=== PATIENT | male | born 1955 | race Caucasian/White ===

== ENCOUNTER → 2016-12-28 | Outpatient (CLI) | payer BC ==
[2016-12-28 17:43] LABS: HEMATOCRIT 43.5 % (42-52)
[2016-12-28 18:13] LABS: ALB/GLOB RATIO 1.2 (0.9-2); ALKALINE PHOSPHATASE 66 U/L (45-117); ALT/SGPT 36 U/L (12-78); AST/SGOT 22 U/L (15-37); BLOOD UREA NITROGEN 9 mg/dl (7-18); BUN/CREATININE RATIO 11.4 (10-20); CARBON DIOXIDE 31 mmol/L (21-32); CHLORIDE 105 mmol/L (98-107); CREATININE 0.81 mg/dl (0.60-1.40); GLUCOSE 91 mg/dl (70-99); HDL CHOLESTEROL 49 mg/dl; SODIUM 140 mmol/L (136-145)
[2016-12-28 18:14] LABS: CHOLESTEROL 99 mg/dl (0-200); LDL CHOLESTEROL CALCULATED 40 mg/dl; TRIGLYCERIDES 50 mg/dl (0-150); VERY LOW DENSITY LIPOPROT CALC 10 mg/dl
== END ==
LOC: C.LABMFLN 12:56
PROVIDERS: ATTEND Family Medicine
DX: I25.10 Atherosclerotic heart disease of native coronary artery without angina pectoris (principal); E78.00 Pure hypercholesterolemia, unspecified; E53.8 Deficiency of other specified B group vitamins

== ENCOUNTER → 2017-07-18 | Outpatient (CLI) | payer BC ==
[2017-07-18 18:29] LABS: BASO % 0.3 %; BASO ABS # 0.02 K/uL (0-0.2); COMPLETE YES; EOS % 2.5 %; HEMATOCRIT 45.1 % (42-52); IG% 0.3 %; LYMPH % 20.6 %; LYMPH ABS # 1.59 K/uL (1.2-3.4); MEAN CELL VOLUME 94.9 fL (80-100); MEAN CORPUSCULAR HEMOGLOBIN 31.8 pg (25-34); MEAN CORPUSCULAR HGB CONC 33.5 g/dl (32-36); MEAN PLATELET VOLUME 10.6 fL (7.4-10.4); MONO % 8.2 %; NEUT % 68.1 %; PLATELET COUNT 264 K/uL (130-400); RED BLOOD COUNT 4.75 M/uL (4.7-6.1)
[2017-07-18 18:40] LABS: ALT/SGPT 32 U/L (12-78); AST/SGOT 15 U/L (15-37); BLOOD UREA NITROGEN 9 mg/dl (7-18); BUN/CREATININE RATIO 12.1 (10-20); CALCIUM 8.6 mg/dl (8.5-10.1); CARBON DIOXIDE 30 mmol/L (21-32); CHLORIDE 102 mmol/L (98-107); CREATININE 0.75 mg/dl (0.60-1.40); GLUCOSE 106 mg/dl (70-99); POTASSIUM 4.1 mmol/L (3.5-5.1); SODIUM 137 mmol/L (136-145)
[2017-07-18 18:43] LABS: ALB/GLOB RATIO 1.1 (0.9-2); ALKALINE PHOSPHATASE 62 U/L (45-117); CHOLESTEROL 111 mg/dl (0-200); CHOLESTEROL/HDL RATIO 1.9; HDL CHOLESTEROL 59 mg/dl; LDL CHOLESTEROL CALCULATED 39 mg/dl; TRIGLYCERIDES 63 mg/dl (0-150); VERY LOW DENSITY LIPOPROT CALC 13 mg/dl
== END | disposition home or self-care (01) ==
LOC: C.LABMFLN 12:15
PROVIDERS: ATTEND Family Medicine
DX: E78.00 Pure hypercholesterolemia, unspecified (principal); D51.9 Vitamin B12 deficiency anemia, unspecified; E78.5 Hyperlipidemia, unspecified; I25.10 Atherosclerotic heart disease of native coronary artery without angina pectoris

== ENCOUNTER → 2018-01-02 | Outpatient (CLI) | payer BC ==
[2018-01-02 18:21] LABS: ALBUMIN 3.7 gm/dl (3.4-5.0); ALKALINE PHOSPHATASE 61 U/L (45-117); ALT/SGPT 42 U/L (12-78); AST/SGOT 16 U/L (15-37); BLOOD UREA NITROGEN 17 mg/dl (7-18); CALCIUM 9.3 mg/dl (8.5-10.1); CARBON DIOXIDE 29 mmol/L (21-32); CHOLESTEROL 102 mg/dl (0-200); CREATININE 0.98 mg/dl (0.60-1.40); GLUCOSE 90 mg/dl (70-99); LDL CHOLESTEROL CALCULATED 40 mg/dl; POTASSIUM 3.8 mmol/L (3.5-5.1); SODIUM 140 mmol/L (136-145); TOTAL PROTEIN 7.6 gm/dl (6.4-8.2)
== END | disposition home or self-care (01) ==
LOC: C.LABMFLN 11:01
PROVIDERS: ATTEND Family Medicine
DX: I25.10 Atherosclerotic heart disease of native coronary artery without angina pectoris (principal); D51.9 Vitamin B12 deficiency anemia, unspecified; I10 Essential (primary) hypertension; E78.00 Pure hypercholesterolemia, unspecified; M17.10 Unilateral primary osteoarthritis, unspecified knee; Z12.5 Encounter for screening for malignant neoplasm of prostate

== ENCOUNTER 2021-10-21 06:20 | Observation (INO) ==
--- NOTE | 2021-10-12 10:26 | Anesthesiology Consultation ---
Date of Service October 12, 2021 Assessment & Plan (1) Encounter for pre-operative examination: - check BSG am DOS. - Pre-op EKG 10/09/2021-anterior infarct now present. Case reviewed with Dr. Guardado who also personally reviewed EKGs and advised case will need cardiology clearance statement on most recent EKG. Workload note sent to patient's ghost writer. Awaiting cardiology clearance statement. - Case discussed with Dr. Guardado who advised nothing further needed regarding new diabetic diagnosis given A1c at 6.8% or thrush as patient was initiated on treatment by PCP. - PCP office visit 09/29/2021 [place]: "...patient's history of coronary artery disease he denies having any chest pain, chest pressure, or shortness of breath...patient has a rash in his mouth. He has been using Kenalog and Orabase without any relief. It has been present for several months...rash in the mouth I do not think it is lichen planus...looks more like thrush which is a fungal infection. Also, it looks like you have a fungal infection in the penis area...tried nystatin swishes and swallows in June without relief...will give fluconazole 200 mg, 2 pills today and 1 pill daily for 13 more days. Do not take the atorvastatin while on the fluconazole..." - Cardio office visit 06/09/2021: "...Recommendations: 1. The patient isan acceptable cardiac riskto undergo left total knee arthroplasty as scheduled. Based on his high activity level at this time and lack of any cardiac symptoms he does not require a stress test preoperatively. 2. Would continue his usual cardiac medications throughout the perioperative course..." - COVID screening: Per patient assessment coordinator on 10/07/2021: Travel screen negative, no known COVID-19 positive contacts or current COVID-19 related symptoms in past 2 weeks. Patient vaccinated. Surgeon arranging preop COVID testing, scheduled 10/19/2021. Awaiting results. Chart Review Chart Review: Pending: Refer to Additional Notes / Consult section and Patient NOT seen in Pre Admission Testing History Surgery Operation Date: 10/21/21 09:15 Proposed Procedures p Left Total Knee Arthroplasty - Luis Hernandez MD Surgery re-scheduled to 10/21/2021. PAT clinic evaluation 05/18/2021. Height/Weight Height: 6 ft Weight: 140.614 kg Allergies Allergy/AdvReac Type Severity Reaction Status Date / Time No Known Allergies Allergy Verified 10/07/21 13:51 Medications Home Medications Medication Instructions Recorded Confirmed Last Taken aspirin 81 mg tablet 81 mg PO HS tab 01/25/19 10/07/21 Unknown [id number] 1 tab PO BID tab 01/25/19 10/07/21 Unknown 750 mg-100 mg-125 mg-1.65 mg tablet (Glucosamine Chondroit Complx Advan) ascorbic acid (vitamin C) 500 mg 500 mg PO QAM tab 03/23/19 10/07/21 Unknown tablet meloxicam 15 mg tablet 15 mg PO DAILY #30 tab 06/19/20 10/07/21 Unknown syringe with needle 3 mL 25 x 5/8" #1 ea 06/19/20 09/29/21 Unknown (BD SafetyGlide Syringe) lisinopril 20 mg tablet 20 mg PO DAILY #90 tab 11/10/20 10/07/21 Unknown pantoprazole 40 mg tablet,delayed 40 mg PO DAILY #90 tab 01/13/21 10/07/21 Unknown release trazodone 100 mg tablet 100 mg PO HS #90 tab 03/24/21 10/07/21 Unknown metoprolol succinate 50 mg 50 mg PO DAILY #90 tab 05/04/21 10/07/21 Unknown tablet,extended release 24 hr calcium 600 mg capsule 600 mg PO HS 05/13/21 10/07/21 Unknown atorvastatin 80 mg tablet 80 mg PO HS #90 tab 06/25/21 10/07/21 Unknown nystatin 100,000 unit/gram topical 1 applic TOPICAL BID #30 g 06/29/21 10/07/21 Unknown cream nystatin 100,000 unit/mL oral 5 ml PO QID #473 ml 06/29/21 10/07/21 Unknown suspension zolpidem 10 mg tablet 10 mg PO HS PRN #90 tab 07/22/21 10/07/21 Unknown escitalopram oxalate 20 mg tablet 20 mg PO DAILY #90 tab 09/02/21 10/07/21 Unknown ferrous gluconate 324 mg (38 mg 324 mg PO DAILY #30 tab 09/29/21 10/07/21 Unknown iron) tablet fluconazole 200 mg tablet See Rx Instructions PO DAILY #15 09/29/21 10/07/21 Unknown tab cyanocobalamin (vitamin B-12) 1,000 mcg IM MONTHLY #3 ea 10/05/21 10/07/21 Unknown 1,000 mcg/mL injection kit hydrocodone 5 mg-acetaminophen 325 See Rx Instructions PO QID PRN 10/05/21 10/07/21 Unknown mg tablet #180 tab MDD 6 nitroglycerin 0.4 mg sublingual 0.4 mg SL Q5M PRN #25 tab 10/05/21 10/07/21 Unknown tablet Past Medical History Medical History (Updated 10/12/21 @ 10:23 by Liliana Walden PA-C) Arteriosclerosis of coronary artery CABG X 1( GÓMEZ-LAD ) 06/08/2007 at [place] Depression "Weather related/rainy days" he reports if extended i.e consecutive days Diabetes mellitus A1c 6.8% 09/2021 GERD without esophagitis well controlled, stable Hyperlipidemia Hypertension Well controlled, stable Insomnia Obesity Patient denied h/o stroke, seizures, heart failure, DM, blood clots or blood transfusions. Exercise / Class Metabolic Activity II 4-5 Yardwork/Stairs/Walk up hill (no CP or SOB) Past Family History Family History Father Rheumatoid arthritis Diabetes Psoriasis Mother Fibromyalgia Other No family history of adverse response to anesthesia Past Surgical History Surgical History H/O arthroscopic knee surgery ? 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 History of tooth extraction Hx of CABG X 1 VESSEL (10 YEARS AGO>[facility]) History of PONV History of PONV Social History Smoking Status: Former smoker tobacco type: cigarettes and smokeless tobacco Do You Dip or Chew Tobacco: No (12 years ago) Smoking End Date: in his 30s Hx Alcohol Use: Yes alcohol intake frequency: holidays/special occasions only Hx Substance Use: No substance use type: does not use Review of Systems Patient denied chest pain, shortness of breath, dyspnea on exertion, snoring, witnessed apneas, dizziness, lightheadedness, fever, chills, cough, wheezing, palpitations. Physical Exam Vital Signs Vitals (05/2021) BP 124/71 P 74 TEMP 98.6 SP02 97% RESP 16 Physical (05/2021) Mild limited cervical extension range of motion without pain Full TMJ range of motion TMD 3 finger breaths Mallampati Score 1 Dentition: intact, full upper dentures, missing back mandibular teeth. No crowns, implants, loose or chipped teeth Lungs: normal respiratory effort. Clear throughout to auscultation, no adventitious breath sounds Cardiac: regular rate and rhythm, no murmurs noted Carotid arteries: negative bruit bilat Extremities: no distal extremity edema Lab Results Anesthesia Preop Results Results Anesthesia Widget: WBC 8.00 K/uL (4.8-10.8) 10/09/21 Hgb 14.7 g/dL (14.0-18.0) 10/09/21 Hct 43.8 % (42-52) 10/09/21 Plt 272 K/uL (130-400) 10/09/21 Na 140 mmol/L (136-145) 10/09/21 K 4.5 mmol/L (3.5-5.1) 10/09/21 Cl 103 mmol/L (98-107) 10/09/21 CO2 28 mmol/L (21-32) 10/09/21 BUN 15 mg/dl (6-23) 10/09/21 Creat 0.77 mg/dl (0.6-1.4) 10/09/21 Glucose Level 105 mg/dl (70-99(Fasting)) H 10/09/21 Fasting Glucose 127 mg/dl (70-99) H 09/29/21 PT 9.8 Seconds (9.0-12.0) 10/09/21 PTT 25.1 Seconds (21.0-31.0) 10/09/21 INR 1.0 (0.9-1.1) 10/09/21 HA1c 6.8 % (4.5-5.6) H 10/09/21 Urine Color Yellow 10/09/21 Urine Appearance Clear (Clear) 10/09/21 Urine pH 5.0 (4.5-7.5) 10/09/21 Urine Specific [place] 1.020 (1.000-1.030) 10/09/21 Urine Protein Negative (Negative) 10/09/21 Urine Glucose (UA) Negative (Negative) 10/09/21 Urine Ketones Negative (Negative) 10/09/21 Urine Blood Negative (Negative) 10/09/21 Urine Nitrite Negative (Negative) 10/09/21 Urine Bilirubin Negative (Negative) 10/09/21 Urine Urobilinogen Negative (Negative) 10/09/21 Urine Leukocyte Esterase Negative (Negative) 10/09/21 Testing Electrocardiogram Date: 10/09/21 NSR, rate 68 bpm Left axis deviation Anterior infarct Chest X-Ray Date: 05/18/21 IMPRESSION: 1. No acute process. 2. Linear left midlung and left lung base opacities suggest atelectasis/scarring.
--- NOTE | 2021-10-20 19:14 | History & Physical Report ---
Date of Service October 20, 2021 Assessment & Plan (1) Primary osteoarthritis of left knee: Plan: Treatment options discussed with the patient. He has failed conservative measures. He would like to proceed with surgical intervention. Risks, benefits and alternatives to surgery including but not limited to infection, DVT, pain, stiffness, need for revision surgery, damage to blood vessels, damage to nerves, PE, , were discussed with the patient and they wish to proceed. Plan on left total knee arthroplasty scheduled for with Dr. Hernandez at [facility]. Will plan on ASA 81mg BID for 1 mo post op for DVT prophylaxis. All questions answered. f/u post op. History of Present Illness Chief Complaint: Left knee pain Primary Care Provider: Ron Hamilton MD 66 year old male with PMHx significant for HTN, CAD, high cholesterol, DM2 who presents with ongoing left knee pain. He has pain interfering with his daily ac tivities. He has failed conservative measures including anti-inflammatories and injections. He would like to proceed with knee replacement. Patient denies headaches, sweats, fevers, chills, double vision, blurred vision, cough, sore throat, dysphagia, chest pain, sob, wheezing, n/v/d/c, numbness, tingling, fatigue, urinary symptoms, mood disorders. ROS positive for left knee pain and stiffness. Allergies Allergy/AdvReac Type Severity Reaction Status Date / Time No Known Drug Allergies Allergy Verified 10/14/21 10:41 Home Medications Medication Instructions Recorded Confirmed Type aspirin 81 mg tablet 81 mg PO HS tab 01/25/19 10/14/21 History [id number] 1 tab PO BID tab 01/25/19 10/14/21 History 750 mg-100 mg-125 mg-1.65 mg tablet (Glucosamine Chondroit Complx Advan) ascorbic acid (vitamin C) 500 mg 500 mg PO QAM tab 03/23/19 10/14/21 History tablet meloxicam 15 mg tablet 15 mg PO DAILY #30 tab 06/19/20 10/14/21 Rx syringe with needle 3 mL 25 x 5/8" #1 ea 06/19/20 10/14/21 Rx (BD SafetyGlide Syringe) lisinopril 20 mg tablet 20 mg PO DAILY #90 tab 11/10/20 10/14/21 Rx pantoprazole 40 mg tablet,delayed 40 mg PO DAILY #90 tab 01/13/21 10/14/21 Rx release trazodone 100 mg tablet 100 mg PO HS #90 tab 03/24/21 10/14/21 Rx metoprolol succinate 50 mg 50 mg PO DAILY #90 tab 05/04/21 10/14/21 Rx tablet,extended release 24 hr calcium 600 mg capsule 600 mg PO HS 05/13/21 10/14/21 History atorvastatin 80 mg tablet 80 mg PO HS #90 tab 06/25/21 10/14/21 Rx nystatin 100,000 unit/gram topical 1 applic TOPICAL BID #30 g 06/29/21 10/14/21 Rx cream nystatin 100,000 unit/mL oral 5 ml PO QID #473 ml 06/29/21 10/14/21 Rx suspension zolpidem 10 mg tablet 10 mg PO HS PRN #90 tab 07/22/21 10/14/21 Rx escitalopram oxalate 20 mg tablet 20 mg PO DAILY #90 tab 09/02/21 10/14/21 Rx ferrous gluconate 324 mg (38 mg 324 mg PO DAILY #30 tab 09/29/21 10/14/21 Rx iron) tablet fluconazole 200 mg tablet See Rx Instructions PO DAILY #15 09/29/21 10/14/21 Rx tab cyanocobalamin (vitamin B-12) 1,000 mcg IM MONTHLY #3 ea 10/05/21 10/14/21 Rx 1,000 mcg/mL injection kit hydrocodone 5 mg-acetaminophen 325 See Rx Instructions PO QID PRN 10/05/21 10/14/21 Rx mg tablet #180 tab MDD 6 nitroglycerin 0.4 mg sublingual 0.4 mg SL Q5M PRN #25 tab 10/05/21 10/14/21 Rx tablet azithromycin 250 mg tablet 250 mg PO .COMPLEX 5 Days #6 tab 10/12/21 10/14/21 Rx MDD 2 chlorhexidine gluconate 0.12 % 15 ml BUCCAL BID #1500 ml 10/14/21 10/14/21 Rx mouthwash (Peridex) dexamethasone 0.5 mg/5 mL oral 5 ml PO BID #240 ml 10/14/21 10/14/21 Rx solution Past Med/Surg History Medical History Arteriosclerosis of coronary artery Depression Diabetes mellitus GERD without esophagitis Hyperlipidemia Hypertension Insomnia Mouth ulcers Obesity Surgical History H/O arthroscopic knee surgery H/O lymph node biopsy History of carpal tunnel release History of colonoscopy History of excision of pilonidal cyst History of surgery on arm History of tooth extraction Hx of CABG Family History Father Rheumatoid arthritis Diabetes Psoriasis Mother Fibromyalgia Family/Other Hypertension Other No family history of adverse response to anesthesia No family history of bleeding disorder Social History Smoking Status: Former smoker Age Started Using Tobacco: 21; Age Quit Using Tobacco: 32; packs per day: 1; Years Smoked: 25; Second Hand Exposure: No; Hx Alcohol Use: Yes Hx Substance Use: No Preferred Language: Yi Communication Ability: Effective Insect Control Inspector Required: No Beliefs That Will Affect Care: None marital status: Current Living Situation: Spouse current occupational status: employed 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 Feels Safe at Home: Yes Dental Care, Regularly: Yes Physical Activity Frequency: Other Seatbelt Use: always Sunscreen Use: Yes Assistive Devices: Denture - Upper and Glasses Review of Systems All systems reviewed & are unremarkable except as noted in HPI & below Physical Exam Constitutional: well developed and well nourished; no acute distress Eyes: PERRL, conjunctivae normal, anicteric sclerae ENMT: external ear and nose normal, oropharynx normal Neck: trachea midline, no thyromegaly Respiratory: normal respiratory effort, lungs clear to auscultation Cardiovascular: RRR, no murmur, no edema Musculoskeletal: Left knee: Tenderness medial joint line. Varus alignment, mild effusion. Stable to valgus and varus stress. Positive Darlene's. ROM 0-135 degrees . Skin: no rashes, warm and dry Neurologic: patellar DTR's 2+ bilat, sensation intact Psychiatric: A+Ox3, euthymic affect Results & Data ([place]) Diagnostic Findings Left knee radiographs demonstrate varus alignment. Bone on bone medial compartment with bone loss medial femoral condyle. He has subluxation. There is subchondral sclerosis and periarticular osteophyte formation. PF joint degenerative changes.
[~2021-10-21 06:20] MED LIST: ACETAMINOPHEN 500 MG TAB PO SCH; CeleBREX 200 MG CAP PO SCH; FAMOTIDINE 20 MG TAB PO SCH; GABAPENTIN 600 MG DOSE PO SCH; LR 500ML BOLUS, THEN 15ML/HR IV SCH; METOCLOPRAMIDE HCL 10 MG TABLET PO SCH; ROPIVACAINE 0.5% HCL/PF 150 MG, BUPIVACAINE 0.75% MPF 20 ML, EPINEPHrine 30MG/30ML (OR ... INFIL SCH; TRANEXAMIC ACID 1,000 MG **IV Intra-op IV SCH; TRANEXAMIC ACID 1,000 MG **IV Pre-op IV SCH; ceFAZolin 2000MG 2,000 MG/15 ML SYR IV SCH; dexAMETHasone 4 MG TAB PO SCH
[2021-10-21] MEDS ORDERED: BUPIVACAINE 0.5 % 5 MG/1 ML PF 10ML VIAL ONE (06:38)
[2021-10-21] MEDS ORDERED: ROPIVACAINE 0.5% 5 MG/ML 30 ML VIAL ONE (06:38)
[2021-10-21] MEDS ORDERED: MIDAZOLAM HCL 1 MG/ML 2ML VIAL ONE (08:48)
[2021-10-21] MEDS ORDERED: ATROPINE SULFATE 0.1 MG/ML 10ML SYR IV PRN (09:12)
[2021-10-21] MEDS ORDERED: ONDANSETRON INJ 2 MG/ML 2 ML VIAL IV PRN ×2 (09:12→14:01)
[2021-10-21] MEDS ORDERED: KETOROLAC 30 MG/ML VIAL IV PRN (09:12)
[2021-10-21] MEDS ORDERED: ePHEDrine sulfate 50 MG/ML AMP IV PRN (09:12)
[2021-10-21] MEDS ORDERED: HYDROmorphone INJ 1 MG/ML SYRINGE IV PRN (09:12)
--- NOTE | 2021-10-21 09:45 | History & Physical Bridge Note ---
Date of Service October 21, 2021 History & Physical Bridge Note I have examined the patient, reviewed the History & Physical and in the interval since the performance of the History & Physical I have noted the following changes of clinical significance: no changes noted
[2021-10-21] MEDS ORDERED: ORTHO JOINT ANESTHETIC ONE (09:46)
[2021-10-21] MEDS ORDERED: LIDOCAINE 2% 2 ML VIAL/AMP(20MG/ML) INFIL ONE (09:49)
[2021-10-21] MEDS ORDERED: PROPOFOL IV EMULSION 10 MG/ML 20 ML VIAL IV ONE ×3 (09:49→11:53)
[2021-10-21] MEDS ORDERED: ONDANSETRON INJ 2 MG/ML 2 ML VIAL ONE (09:50)
[2021-10-21] MEDS ORDERED: ePHEDrine sulfate 50 MG/ML SYR ONE (10:09)
[2021-10-21] MEDS ORDERED: KETAMINE 50 MG/5 ML SYRINGE ONE (10:12)
--- NOTE | 2021-10-21 11:48 | Operative Report ---
Post Operative Report Pre & Post Diagnosis Operation Date: 10/21/21 09:20 Pre-Op Diagnosis: Left Knee Osteoarthritis, obesity BMI 42.5 Post-Op Diagnosis: Left Knee Osteoarthritis, obesity BMI 42.5 I identified the patient and participated in the time-out.: Yes Procedure Operation Date: 10/21/21 09:20 Actual Procedures p Left Total Knee Arthroplasty(Left), lateral release, application superficial wound VAC Luis Hernandez MD Surgeon Luis Hernandez MD Drilling Field Professional Rajesh ROSE Estimated Blood Loss 5 Findings Consistent with Post-Op Diagnosis Specimens Bone cuts Drains 2 Hemovac Anesthesia Type MAC Spinal Regional Complications none Disposition Disposition: Recovery Room Indications 66-year-old male with progressive osteoarthritis of his left knee. Radiographs demonstrate a varus knee has [id number] medial compartment moderate patellofemoral osteoarthritis. Description of Procedure Patient was taken to the operating room placed supine on the operating table and anesthetized under spinal MAC regional block anesthesia. Exam under anesthesia demonstrated he had an obese upper thigh but his knee had normal size for a large man. The knee was varus and there was no instability there was a moderately large effusion. A pneumatic tourniquet was placed about the thigh of the left lower extremity. The left lower extremity was prepped and draped in usual sterile fashion. The leg was elevated exsanguinated with an Esmarch bandage and the pneumatic tourniquet was raised to 350 mm mercury. An anterior incision was made across the left knee. The skin was incised longitudinally subcutaneous flaps were elevated and an incision was made through the medial retinaculum extending up into the mid third of the quadriceps tendon and extended down to the medial tibial tubercle. Intra-articular findings demonstrated medial compartment and patellofemoral OA [id number] medial compartment grade 4 osteoarthritis of the patella. There was degeneration of the ACL with partial tearing. The knee was exposed by excising the infrapatellar fat pad, excising the meniscal remnants and anterior cruciate ligament. Any inflamed synovial tissue was resected. The fat pad over the anterior femur was resected for placement of the component in that area. The lateral synovial bands were release. The femur was exposed. The custom femoral cutting block was pinned in position. The distal femoral cutting block was applied. The distal femoral cut was made with the oscillating saw. The size 10, 4-in-1 cutting block was placed. The anterior and posterior chamfer cuts were made. The knee was extended and a subperiosteal peel lateral release was performed around the patella. The patella width was measured and width was reproduced using freehand cut technique. The 38 millimeter symmetrical patella was used. 3 drill holes are made for the pegs. The tibia was exposed. A custom tibial cutting block was positioned and drill holes were made for the cutting guide. Cutting guide was placed and the proximal cut was made with the oscillating saw. All osteophytes were resected. The lamina senior client advisor was used to assess ligamentous balance and the ligaments were balanced in extension and flexion. The tibia was reexposed and measured for a size F tibial component. This was externally rotated in line with the tibial tubercle and the fixation pins were drilled. The proximal tibia was fashioned with the drill and punch. The size 10 CR femoral trial was inserted. The trial MC inserts were used. The 11 mm insert gave balanced ligaments through full range of motion. The patella tracked with some slight lateral liftoff and lateral tilt so I did a lateral release leaving the synovium intact and this corrected the patella tracking to central. The trials were removed. The orthomix anesthetic cocktail was injected per protocol. The knee was then copiously irrigated with pulsatile lavage saline solution. The final components were cemented with Refobacin bone cement. The final components were [employer] persona left standard CR femoral component, left F tibial component and 11 MC polyethylene insert and a 38 symmetrical patella after the cement cured with the knee in full extension the Betadine soak was used per protocol. The knee joint was copiously irrigated with pulsatile lavage saline solution . 2 drains were brought out laterally and connected to a Hemovac. The quadriceps tendon and medial retinaculum were closed with interrupted [id number] #1 Vicryl sutures. The knee was taken through a full range of motion and repair was secure. The subcutaneous tissues were closed with 2-0 Vicryl sutures and skin was closed with mary beth. A ana and Acticoat superficial wound VAC was applied and the patient tolerated the procedure well. Rajesh ROSE my physician distribution center assistant, acted as first aid officer through the entire procedure assisting all aspects of the procedure including assisted in soft tissue retraction, instrument management ,leg positioning, the closure application of superficial wound VAC and will participate in the postoperative care of the patient. I attest to the content of the Intraoperative Record and any orders documented therein. Any exceptions are noted below.
--- NOTE | 2021-10-21 12:52 | XRay Report ---
XR knee LT 1 or 2V routine CLINICAL HISTORY: Surgical Post Op TECHNIQUE: 2 views of the right knee were obtained. Comparison: Comparison is made to MRI left knee 05/18/2021 FINDINGS: Patient is status post total knee arthroplasty with expected postsurgical changes including soft tiss ue swelling, subcutaneous emphysema, and surgical staple placement. No periarticular lucency or hardw are fracture is seen. The alignment is anatomic. No joint effusion is seen. No soft tissue abnormalit y is seen. IMPRESSION: Expected postoperative appearance status post placement of total knee arthroplasty. ACT 112: Negative or not required by law. Electronically signed by: Aquilino Manzanares M.D. 10/21/2021 12:50 PM
--- NOTE | 2021-10-21 13:13 | Anesthesiology Progress Note ---
Date of Service October 21, 2021 Anesthesia Post Procedure Vital Signs Vital Signs: Temp Pulse Pulse Resp BP Pulse Ox 10/21/21 13:10 89 18 138/74 96 10/21/21 13:00 36.7 C 90 19 122/68 98 10/21/21 12:50 91 H 18 117/77 98 10/21/21 12:40 94 H 17 116/74 94 10/21/21 12:30 87 15 136/82 97 10/21/21 12:23 36.0 C L 97 H 15 118/70 99 10/21/21 06:58 37 C 80 20 167/92 H 95 Transfer of Care Handoff Completed per policy Notes Mental Status: alert / awake / arousable and participated in evaluation Nausea / Vomiting: adequately controlled Pain: adequately controlled Airway Patency, RR, SpO2: stable & adequate BP & HR: stable & adequate Hydration State: stable & adequate Neuraxial Anesthesia: was administered and sensory block is resolving Anesthetic Complications: no major complications apparent and Pt Satisfied with anesthetic care
[2021-10-21] MEDS ORDERED: SODIUM CHLORIDE 0.9% 1000ML 1,000 ML IV SCH (14:01)
[2021-10-21] MEDS ORDERED: HYDROmorphone INJ 0.5 MG/0.5 ML SYR IV PRN (14:01)
[2021-10-21] MEDS ORDERED: NON-FORMULARY MEDICATION (Cyanocobalamin (Vitamin B-12) 1,000 mcg/mL kit) IM SCH (14:01)
[2021-10-21] MEDS ORDERED: ZOLPIDEM TARTRATE 10 MG TAB PO PRN (14:01)
[2021-10-21] MEDS ORDERED: bisacodyL 10 MG SUPP PR PRN (14:01)
[2021-10-21] MEDS ORDERED: PHARMACY GLYCEMIC MGMT CONSULT PRN (14:01)
[2021-10-21] MEDS ORDERED: NITROGLYCERIN SL 0.4 MG/TAB TAB SL PRN (14:01)
[2021-10-21] MEDS ORDERED: MAGNESIUM HYDROXIDE SUSP 30 ML UDC PO PRN (14:01)
[2021-10-21] MEDS ORDERED: METOCLOPRAMIDE HCL INJ 5 MG/ML 2 ML VIAL IV PRN (14:01)
[2021-10-21] MEDS ORDERED: NALOXONE HCL 0.4 MG/1 ML VIAL/CARP IV PRN (14:01)
--- NOTE | 2021-10-21 14:44 | Pharmacy Report ---
Pharmacy Glycemic Short Note 2 - Date of Service October 21, 2021 - Glycemic Short BSG Results (Last 24 hours): 10/21/21 10/21/21 06:55 12:26 POC Glucose 130 H 132 H OUTPATIENT ANTIDIABETIC REGIMEN: * none * A1c = 6.8% (10/09/21) ASSESSMENT: * Rivera is a 66 yo s/p left TKA * He does not take any anti-diabetic agents as an outpatient. * Excellent BSG control thus far today. BSGs 130 and 132 mg/dL. * Patient did receive a dose of dexamethasone PO preop, therefore he could experience postprandial hyperglycemia throughout the day. Will order a one time prn dose of NPH to be given for BSG > 150 mg/dL at dinner. PLAN FOR INPATIENT GLYCEMIC CONTROL: * Hold outpatient oral diabetes medications * Basal insulin * NPH 0-20 units units SQ with dinner x 1 (only for BSG > 150) * Bolus insulin * NovoLog per scale ACHS or Q6hrs while NPO * Goal Range: Low 110 mg/dL - High 140 mg/dL * Correction Factor: 20 mg/dL/unit * Nutritional / Prandial insulin per carb ratio of 1 unit per 7 grams CHO consumed
[2021-10-21] MEDS ORDERED: CARBOHYDRATES FOR HYPOGLYCEMIA PO PRN (14:45)
[2021-10-21] MEDS ORDERED: GLUCOSE 10 TABS/TUBE PO PRN (14:45)
[2021-10-21] MEDS ORDERED: GLUCAGON FOR INJ 1 MG VIAL IM PRN (14:45)
[2021-10-21] MEDS ORDERED: DEXTROSE 50% 50 ML SYRINGE IV PRN (14:45)
[2021-10-21] MEDS ORDERED: GLUCOSE 40% GEL 15 GM TUBE PO PRN (14:45)
--- NOTE | 2021-10-21 16:08 | Hospitalist Consultation ---
Date of Consultation October 21, 2021 Assessment & Plan (1) Primary osteoarthritis of left knee: S/p left TKA with Dr. Hernandez on 10/21/2021. Reported BL was 5 mL. Presently without significant pain due to nerve block. - Post-operative care per surgery - DVT ppx: ASA 81 mg PO BID per primary team - At risk for acute blood loss anemia; monitor CBC, could consider IV iron prior to discharge. (2) Mouth ulcers: Lichen planus per pathology. - Continue home dexamethasone swish and spit (3) Diabetes mellitus: Recent A1c was 6.8%. - Sliding scale insulin & NPH insulin per glycemic consult (4) Coronary arteriosclerosis: Hx of CABG. - Continue ASA (higher dose for DVT ppx) - Continue home beta-simone, ACEi, and statin (5) Hypertension: BP presently 165/105. - Continue above meds (6) Depression: - Continue home SSRI - Continue home trazodone and zolpidem HS PRN for insomnia History of Present Illness Reason for Consultation: Left TKA, medical management Attending Physician: Luis Hernandez MD History of Present Illness 66yo M w/ hx of HTN, CAD, depression who presents after left TKA with Dr. Hernandez on 10/21/2021. The patient was having significant left knee pain that was recalitrant to conservative measures. The patient's knee block has not yet worn off. He can feel light touch, but denies any significant pain. Denies shortness of breath, chest pain, lightheadedness, urinary issues. Allergies Allergy/AdvReac Type Severity Reaction Status Date / Time No Known Drug Allergies Allergy Verified 10/21/21 06:48 Home Medications Medication Instructions Recorded Confirmed Type aspirin 81 mg tablet 81 mg PO HS tab 01/25/19 10/21/21 History [id number] 1 tab PO DAILY tab 01/25/19 10/21/21 History 750 mg-100 mg-125 mg-1.65 mg tablet (Glucosamine Chondroit Complx Advan) ascorbic acid (vitamin C) 500 mg 500 mg PO QAM tab 03/23/19 10/21/21 History tablet meloxicam 15 mg tablet 15 mg PO DAILY #30 tab 06/19/20 10/21/21 Rx syringe with needle 3 mL 25 x 5/8" #1 ea 06/19/20 10/14/21 Rx (BD SafetyGlide Syringe) lisinopril 20 mg tablet 20 mg PO DAILY #90 tab 11/10/20 10/21/21 Rx pantoprazole 40 mg tablet,delayed 40 mg PO DAILY #90 tab 01/13/21 10/21/21 Rx release trazodone 100 mg tablet 100 mg PO HS #90 tab 03/24/21 10/21/21 Rx metoprolol succinate 50 mg 50 mg PO DAILY #90 tab 05/04/21 10/21/21 Rx tablet,extended release 24 hr calcium 600 mg capsule 600 mg PO HS 05/13/21 10/21/21 History atorvastatin 80 mg tablet 80 mg PO HS #90 tab 06/25/21 10/21/21 Rx zolpidem 10 mg tablet 10 mg PO HS PRN #90 tab 07/22/21 10/21/21 Rx escitalopram oxalate 20 mg tablet 20 mg PO DAILY #90 tab 09/02/21 10/21/21 Rx ferrous gluconate 324 mg (38 mg 324 mg PO DAILY #30 tab 09/29/21 10/21/21 Rx iron) tablet cyanocobalamin (vitamin B-12) 1,000 mcg IM MONTHLY #3 ea 10/05/21 10/21/21 Rx 1,000 mcg/mL injection kit hydrocodone 5 mg-acetaminophen 325 See Rx Instructions PO QID PRN 10/05/21 10/21/21 Rx mg tablet #180 tab MDD 6 nitroglycerin 0.4 mg sublingual 0.4 mg SL Q5M PRN #25 tab 10/05/21 10/21/21 Rx tablet chlorhexidine gluconate 0.12 % 15 ml BUCCAL BID #1500 ml 10/14/21 10/21/21 Rx mouthwash (Peridex) dexamethasone 0.5 mg/5 mL oral 5 ml PO BID #240 ml 10/14/21 10/21/21 Rx solution acetaminophen 500 mg tablet 1,000 mg PO Q8H 14 Days #84 tab 10/21/21 Rx (Tylenol Extra Strength) aspirin 81 mg tablet,delayed 81 mg PO BID 30 Days #60 tab 10/21/21 Rx release Patient History Medical History (Updated 10/21/21 @ 16:07 by Ricky Huffman MD) Arteriosclerosis of coronary artery CABG X 1( [facility]MEZ-LAD ) 06/08/2007 at [place] Depression "Weather related/rainy days" he reports if extended i.e consecutive days Diabetes mellitus A1c 6.8% 09/2021 GERD without esophagitis well controlled, stable Hyperlipidemia Hypertension Well controlled, stable Insomnia Mouth ulcers Obesity Surgical History H/O arthroscopic knee surgery ? 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 History of tooth extraction Hx of CABG X 1 VESSEL (10 YEARS AGO>[facility]) Family History Father Rheumatoid arthritis Diabetes Psoriasis Mother Fibromyalgia Family/Other Hypertension pt unsure of who exactly but knows it ran in his family Other No family history of adverse response to anesthesia No family history of bleeding disorder Social History Smoking Status: Former smoker Age Started Using Tobacco: 21; Age Quit Using Tobacco: 32; packs per day: 1; Years Smoked: 25; Smoking End Date: in his 30s; Second Hand Exposure: No; Do You Dip or Chew Tobacco: No (12 years ago); Tobacco Cessation Education Requested by Patient: No Hx Alcohol Use: Yes Hx Substance Use: No Preferred Language: British Communication Ability: Effective Placement Specialist Required: No Beliefs That Will Affect Care: None marital status: Current Living Situation: Spouse current occupational status: employed 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 Feels Safe at Home: Yes Safety Concerns: Feels Safe At This Time Dental Care, Regularly: Yes Physical Activity Frequency: Other Seatbelt Use: always Sunscreen Use: Yes Assistive Devices: Walker Review of Systems Review of Systems: All systems reviewed & are unremarkable except as noted in HPI & below Physical Exam Constitutional: WD/WN, vitals as above Eyes: EOM intact bilaterally; no conjunctival abnormality ENMT: external ear and nose normal, oropharynx normal Neck: trachea midline, no thyromegaly normal visual inspection Respiratory: normal respiratory effort, lungs clear to auscultation no respiratory distress Cardiovascular: RRR, no murmur, no edema Gastrointestinal (Abdomen): Inspection/Auscultation: abdomen normal to inspection; abdomen not distended Musculoskeletal: Extremities: + limited ROM of lower extremity (Left leg in brace; toes warm and sensitive to light touch. Can wiggle sligh) Skin: no rashes, warm and dry Neurologic: moves all extremities and awake Psychiatric: Orientation: alert, oriented to person and cooperative Results & Data Results & Data ([facility]) Vital Signs (Past 12 Hours) Vital Signs Temp Pulse Pulse Resp BP Pulse Ox 10/21/21 15:45 36.6 C 90 18 167/105 H 96 10/21/21 14:32 84 16 173/81 H 96 10/21/21 14:02 36.5 C 74 16 162/95 H 93 10/21/21 14:01 36.5 C 74 16 162/95 H 93 10/21/21 13:20 86 18 131/76 96 10/21/21 13:10 89 18 138/74 96 10/21/21 13:00 36.7 C 90 19 122/68 98 10/21/21 12:50 91 H 18 117/77 98 10/21/21 12:40 94 H 17 116/74 94 10/21/21 12:30 87 15 136/82 97 10/21/21 12:23 36.0 C L 97 H 15 118/70 99 10/21/21 06:58 37 C 80 20 167/92 H 95 PG Care Time/CCT Total # of Minutes Spent Total Time Spent with Patient: Total time spent is greater than 50% in coordination of care (as documented) at patient's floor/unit and/or counseling patient: Coding Level of Care Code 19136 Office/OBS Consult Lvl 5 Diagnoses Primary osteoarthritis of left knee M17.12 Mouth ulcers K12.1 Coronary arteriosclerosis I25.10 Hypertension I10 Depression F32.9 Diabetes mellitus E11.9
[2021-10-21] MEDS ORDERED: NovoLIN-N (NPH) PER UNIT CHARGE SQ SCH (16:30)
[2021-10-21] MEDS: ACETAMINOPHEN 500 MG TAB PO SCH (17:13)
[2021-10-21] MEDS: INSULIN ASPART PER UNIT SC SCH ×2 (18:36→21:49)
[2021-10-21] MEDS: ceFAZolin 2000MG 2,000 MG/15 ML SYR IV SCH (18:52)
[2021-10-21] MEDS: oxyCODONE HCL IR 5 MG TAB (IMMEDIATE RELEASE) PO PRN (20:16)
[2021-10-21] MEDS ORDERED: CHLORHEXIDINE GLUCONATE 0.12% 480 ML MT SCH (21:00)
[2021-10-21] MEDS ORDERED: SENNA 8.6 MG TAB PO SCH (21:00)
[2021-10-21] MEDS ORDERED: DEXAMETHASONE 0.5 MG/5 ML PO SCH (21:00)
[2021-10-21] MEDS ORDERED: CALCIUM CARBONATE 1250MG TAB PO SCH (21:00)
[2021-10-21] MEDS ORDERED: ATORVASTATIN 40 MG TAB PO SCH (21:00)
[2021-10-21] MEDS ORDERED: traZODone HCL 100 MG TAB PO SCH (21:00)
[2021-10-21] MEDS: DOCUSATE SODIUM 100 MG CAP PO SCH (21:30)
[2021-10-21] MEDS: ASPIRIN 81 MG ECTAB PO SCH (21:31)
[2021-10-21] MEDS: CeleBREX 200 MG CAP PO SCH (21:31)
[2021-10-21] MEDS: DEXAMETHASONE CONC 1 MG/ML 30 ML PO SCH (22:27)
[2021-10-22] MEDS ORDERED: INSULIN ASPART PER UNIT SC SCH
[2021-10-22] MEDS: ACETAMINOPHEN 500 MG TAB PO SCH ×2 (00:03→08:41)
[2021-10-22] MEDS: ceFAZolin 2000MG 2,000 MG/15 ML SYR IV SCH (02:13)
[2021-10-22] MEDS: oxyCODONE HCL IR 5 MG TAB (IMMEDIATE RELEASE) PO PRN ×3 (02:13→11:35)
[2021-10-22 06:52] LABS: Hematocrit (blood only) 37.4 % (42-52); Hemoglobin 12.8 g/dL (14.0-18.0); Mean Corpuscular Hemoglobin 32.1 pg (25-34); Mean Corpuscular Hgb Conc 34.2 g/dL (32-36); Mean Corpuscular Volume 93.7 fL (80-100); Mean Platelet Volume 9.9 fL (7.4-10.4); Platelet Count 293 K/uL (130-400); RDW Coefficient of Variation 12.5 % (11.5-14.5); RDW Standard Deviation 42.9 fL (36.4-46.3); Red Blood Count 3.99 M/uL (4.7-6.1)
[2021-10-22 07:12] LABS: BUN Creatinine Ratio 23.1 (10-20); Calcium 8.8 mg/dl (8.5-10.1); Creatinine Clr Calc Pharmacy 139.9 ml/min; Est GFR (African American) 110.6 ml/min; Est GFR (Non-African American) 95.4 ml/min; Potassium 4.7 mmol/L (3.5-5.1)
[2021-10-22] MEDS: ASPIRIN 81 MG ECTAB PO SCH (08:41)
[2021-10-22] MEDS: CeleBREX 200 MG CAP PO SCH (08:42)
--- NOTE | 2021-10-22 08:42 | Orthopedic Progress Note ---
Date of Service October 22, 2021 Assessment & Plan (1) Primary osteoarthritis of left knee: Plan: POD 1 s/p Left TKA PT/OT protocols. WBAT. DVT prophylaxis - ASA bid, SCD's, SJ's Pain management as written Leukocytosis - pt asymptomatic currently; likely due to preop steroids and or surgical stress DC planning - Pt planning for services upon DC. Admission and Anticipated Discharge Date Admission Date: October 21, 2021 Subjective POD 1 Pt sitting up in bed awake, alert. Mild soreness in the operative knee this AM. No other complaints. Denies SOB,CP,LH Physical Exam Physical Exam: Dressings C/D/I. Calves soft, NT. NV intact. Toes mobile. Good DF/PF. HV drainage 150ml from previous shift. Results & Data ([facility]) Vital Signs (Past 12 Hours) Vital Signs Temp Pulse Resp BP Pulse Ox 10/22/21 07:24 36.5 C 74 18 158/90 H 93 10/22/21 04:58 36.7 C 86 17 148/81 H 98 10/21/21 23:54 36.8 C 85 17 152/80 H 93 Laboratory Results Laboratory Results WBC 16.00 K/uL (4.8-10.8) H 10/22/21 06:13 RBC 3.99 M/uL (4.7-6.1) L 10/22/21 06:13 Hgb 12.8 g/dL (14.0-18.0) L 10/22/21 06:13 Hct 37.4 % (42-52) L 10/22/21 06:13 MCV 93.7 fL (80-100) 10/22/21 06:13 MCH 32.1 pg (25-34) 10/22/21 06:13 MCHC 34.2 g/dL (32-36) 10/22/21 06:13 RDW Std Deviation 42.9 fL (36.4-46.3) 10/22/21 06:13 RDW Coeff of Rose Marie 12.5 % (11.5-14.5) 10/22/21 06:13 Plt Count 293 K/uL (130-400) 10/22/21 06:13 MPV 9.9 fL (7.4-10.4) 10/22/21 06:13 Sodium 135 mmol/L (136-145) L 10/22/21 06:13 Potassium 4.7 mmol/L (3.5-5.1) 10/22/21 06:13 Chloride 100 mmol/L (98-107) 10/22/21 06:13 Carbon Dioxide 26 mmol/L (21-32) 10/22/21 06:13 Anion Gap 9 (3-11) 10/22/21 06:13 BUN 18 mg/dl (6-23) 10/22/21 06:13 Creatinine 0.78 mg/dl (0.6-1.4) 10/22/21 06:13 Est Cr Clr Drug Dosing 139.9 ml/min 10/22/21 06:13 Est GFR ( Amer) 110.6 ml/min 10/22/21 06:13 Est GFR (Non-Af Amer) 95.4 ml/min 10/22/21 06:13 BUN/Creatinine Ratio 23.1 (10-20) H 10/22/21 06:13 Glucose 154 mg/dl (70-99(Fasting)) H 10/22/21 06:13 POC Glucose 146 mg/dl (70-99) H 10/22/21 07:32 Calcium 8.8 mg/dl (8.5-10.1) 10/22/21 06:13 SARS-CoV-2, RNA, NAAT NEGATIVE (NEGATIVE) 10/21/21 06:40 Blood Type A Positive 10/21/21 07:05 Antibody Screen NEGATIVE 10/21/21 07:05 Impressions Knee X-Ray 10/21/21 12:30 XR knee LT 1 or 2V routine CLINICAL HISTORY: Surgical Post Op TECHNIQUE: 2 views of the right knee were obtained. Comparison: Comparison is made to MRI left knee 05/18/2021 FINDINGS: Patient is status post total knee arthroplasty with expected postsurgical changes including soft tissue swelling, subcutaneous emphysema, and surgical staple placement. No periarticular lucency or hardware fracture is seen. The alignment is anatomic. No joint effusion is seen. No soft tissue abnormality is seen. IMPRESSION: Expected postoperative appearance status post placement of total knee arthroplasty. ACT 112: Negative or not required by law. Electronically signed by: Aquilino Manzanares M.D. 10/21/2021 12:50 PM
[2021-10-22] MEDS: DEXAMETHASONE CONC 1 MG/ML 30 ML PO SCH (08:44)
[2021-10-22] MEDS: DOCUSATE SODIUM 100 MG CAP PO SCH (08:44)
[2021-10-22] MEDS ORDERED: MULTIVITAMIN TAB PO SCH (09:00)
[2021-10-22] MEDS ORDERED: ASCORBIC ACID 500 MG TAB PO SCH (09:00)
[2021-10-22] MEDS ORDERED: PANTOprazole 40 MG TAB PO SCH (09:00)
[2021-10-22] MEDS ORDERED: METOPROLOL SUCC 50MG EXT REL TAB PO SCH (09:00)
[2021-10-22] MEDS ORDERED: FERROUS GLUCONATE 324 MG TAB PO SCH (09:00)
[2021-10-22] MEDS ORDERED: ESCITALOPRAM OXALATE 20 MG TAB PO SCH (09:00)
[2021-10-22] MEDS ORDERED: lisinopril 20 MG TAB PO SCH (09:00)
[2021-10-22] MEDS: INSULIN ASPART PER UNIT SC SCH ×2 (09:02→12:21)
--- NOTE | 2021-10-22 12:41 | Hospitalist Progress Note ---
Date of Service October 22, 2021 Assessment & Plan (1) Primary osteoarthritis of left knee: Plan: s/p left TKA with Dr. Hernandez on 10/21/2021. Doing well per ortho. d/c home today per ortho. DVT ppx: ASA 81 mg PO BID (2) Mouth ulcers: Plan: Lichen planus per pathology. Continue home dexamethasone swish and spit as previous. (3) Diabetes mellitus: Plan: Recent A1c was 6.8%. Cont dietary control. Not on meds for such. Can continue JERRY as previous. (4) Coronary arteriosclerosis: Plan: Hx of CABG. - Continue ASA (higher dose for DVT ppx) - Continue home beta-simone, lisinoprili, and statin No ischemic symptoms (5) Hypertension: Plan: BPs reasonable today. Cont usual BP meds. (6) Depression: Plan: Continue SSRI Continue trazodone Continue zolpidem HS as previous Plan: leukocytosis - no evidence or signs/symptoms of infectious process --- likely due to stress of surgery afebrile minimal drop of H/H - as expected given the type of surgery performed - no Rx needed creatinine stable on labs today from medical standpoint can d/c home today I discussed a bowel regimen with him in anticipation of constipation from pain med usage at home he is passing flatus despite no bowel movement yet Admission and Anticipated Discharge Date Admission Date: October 21, 2021 Subjective pt sitting in chair eating lunch he is anticipating d/c home today feels good mild L knee pain only did ok with PT in his opinion Review of Systems Review of Systems: CV - no chest pain pulm - no dyspnea GI - no pain, nausea, emesis; no bowel movement but passing flatus Physical Exam Physical Exam: gen - NAD, obese, pleasant neck - no JVD heart - RRR, s1 s2, no murmur lungs - CTA b/l abd - soft NT ND BS+ ext - mild edema L ankle, pulses 2+ b/l musculo - drain in place, ice pack in place L knee Results & Data Results & Data ([facility]) Vital Signs (Past 12 Hours) Vital Signs Temp Pulse Resp BP Pulse Ox 10/22/21 07:24 36.5 C 74 18 158/90 H 93 10/22/21 04:58 36.7 C 86 17 148/81 H 98 Laboratory Results Laboratory Results - last 24 hr 10/22/21 10/22/21 10/22/21 06:13 06:13 07:32 WBC 16.00 H RBC 3.99 L Hgb 12.8 L Hct 37.4 L MCV 93.7 MCH 32.1 MCHC 34.2 RDW Std Deviation 42.9 RDW Coeff of Rose Marie 12.5 Plt Count 293 MPV 9.9 Sodium 135 L Potassium 4.7 Chloride 100 Carbon Dioxide 26 Anion Gap 9 BUN 18 Creatinine 0.78 Est Cr Clr Drug Dosing 139.9 Est GFR ( Amer) 110.6 Est GFR (Non-Af Amer) 95.4 BUN/Creatinine Ratio 23.1 H Glucose 154 H POC Glucose 146 H Calcium 8.8 10/22/21 11:36 WBC RBC Hgb Hct MCV MCH MCHC RDW Std Deviation RDW Coeff of Rose Marie Plt Count MPV Sodium Potassium Chloride Carbon Dioxide Anion Gap BUN Creatinine Est Cr Clr Drug Dosing Est GFR ( Amer) Est GFR (Non-Af Amer) BUN/Creatinine Ratio Glucose POC Glucose 150 H Calcium PG Care Time/CCT Total # of Minutes Spent Total Time Spent with Patient: Total time spent is greater than 50% in coordination of care (as documented) at patient's floor/unit and/or counseling patient: Coding Level of Care Code 01325 Subseq Hosp Care Lvl 1 Diagnoses Primary osteoarthritis of left knee M17.12 Mouth ulcers K12.1 Diabetes mellitus E11.9 Coronary arteriosclerosis I25.10 Hypertension I10 Depression F32.9
--- NOTE | 2021-10-26 07:35 | Discharge Summary ---
Date of Service October 26, 2021 Admission HPI Per Admitting Provider 66 year old male with PMHx significant for HTN, CAD, high cholesterol, DM2 who presents with ongoing left knee pain. He has pain interfering with his daily activities. He has failed conservative measures including anti-inflammatories and injections. He would like to proceed with knee replacement. Patient denies headaches, sweats, fevers, chills, double vision, blurred vision, cough, sore throat, dysphagia, chest pain, sob, wheezing, n/v/d/c, numbness, tingling, fatigue, urinary symptoms, mood disorders. ROS positive for left knee pain and stiffness. Admission Exam Per Admitting Provider Constitutional: well developed and well nourished; no acute distress Eyes: PERRL, conjunctivae normal, anicteric sclerae ENMT: external ear and nose normal, oropharynx normal Neck: trachea midline, no thyromegaly Respiratory: normal respiratory effort, lungs clear to auscultation Cardiovascular: RRR, no murmur, no edema Musculoskeletal: Left knee: Tenderness medial joint line. Varus alignment, mild effusion. Stable to valgus and varus stress. Positive Darlene's. ROM 0-135 degrees . Skin: no rashes, warm and dry Neurologic: patellar DTR's 2+ bilat, sensation intact Psychiatric: A+Ox3, euthymic affect Principal Diagnosis Left knee osteoarthritis Discharge Exam Dressings C/D/I. Calves soft, NT. NV intact. Toes mobile. Good DF/PF. HV drainage 150ml from previous shift. Constitutional WD/WN, vitals as above Psychiatric A+Ox3, euthymic affect Discharge Data Allergies Allergy/AdvReac Type Severity Reaction Status Date / Time No Known Drug Allergies Allergy Verified 10/21/21 06:48 Consultations 10/21/21 05:00 Consult Hospitalist Routine Procedures Performed Operation Date: 10/21/21 09:20 Actual Procedures p Left Total Knee Arthroplasty(Left) - Luis Hernandez MD Ordered Studies 10/21/21 05:00 US - OR guided needle placemen Routine Hospital Course (1) Primary osteoarthritis of left knee: Patient presented for same day admission following left total knee arthroplasty on 10/21/21. He tolerated procedure well. The Patient had an uneventful hospital course. Post-operatively, his activity was progressed and well tolerated. They participated in PT with ambulation distance of 295 feet. ROM of operative knee reached 70 degrees. Labs remained stable- lowest hemoglobin recorded: 12.8. Dr. Ricky Huffman of medical service was consulted for medical management during admission. Pain controlled on oral medications. Please refer to daily progress notes and PT notes for complete details. After exam on 10/22/21, patient was felt to be stable for discharge home with home health PT. Patient will f/u in the office in about 2 weeks for further evaluation including x-rays and incision check, sooner if having any issues or concerns. POD 1 s/p Left TKA PT/OT protocols. WBAT. DVT prophylaxis - ASA bid, SCD's, SJ's Pain management as written Leukocytosis - pt asymptomatic currently; likely due to preop steroids and or surgical stress DC planning - Pt planning for services upon DC. Lab Results 10/21/21 10/21/21 10/21/21 Range/Units 06:40 06:55 07:05 WBC (4.8-10.8) K/uL RBC (4.7-6.1) M/uL Hgb (14.0-18.0) g/dL Hct (42-52) % MCV (80-100) fL MCH (25-34) pg MCHC (32-36) g/dL RDW Std Deviation (36.4-46.3) fL RDW Coeff of Rose Marie (11.5-14.5) % Plt Count (130-400) K/uL MPV (7.4-10.4) fL Sodium (136-145) mmol/L Potassium (3.5-5.1) mmol/L Chloride (98-107) mmol/L Carbon Dioxide (21-32) mmol/L Anion Gap (3-11) BUN (6-23) mg/dl Creatinine (0.6-1.4) mg/dl Est Cr Clr Drug Dosing ml/min Est GFR ( Amer) ml/min Est GFR (Non-Af Amer) ml/min BUN/Creatinine Ratio (10-20) Glucose (70-99(Fasting)) mg/dl POC Glucose 130 H (70-99) mg/dl Calcium (8.5-10.1) mg/dl SARS-CoV-2, RNA, NAAT NEGATIVE (NEGATIVE) Blood Type A Positive Antibody Screen NEGATIVE 10/21/21 10/21/21 10/21/21 Range/Units 12:26 20:40 23:52 WBC (4.8-10.8) K/uL RBC (4.7-6.1) M/uL Hgb (14.0-18.0) g/dL Hct (42-52) % MCV (80-100) fL MCH (25-34) pg MCHC (32-36) g/dL RDW Std Deviation (36.4-46.3) fL RDW Coeff of Rose Marie (11.5-14.5) % Plt Count (130-400) K/uL MPV (7.4-10.4) fL Sodium (136-145) mmol/L Potassium (3.5-5.1) mmol/L Chloride (98-107) mmol/L Carbon Dioxide (21-32) mmol/L Anion Gap (3-11) BUN (6-23) mg/dl Creatinine (0.6-1.4) mg/dl Est Cr Clr Drug Dosing ml/min Est GFR ( Amer) ml/min Est GFR (Non-Af Amer) ml/min BUN/Creatinine Ratio (10-20) Glucose (70-99(Fasting)) mg/dl POC Glucose 132 H 140 H 125 H (70-99) mg/dl Calcium (8.5-10.1) mg/dl SARS-CoV-2, RNA, NAAT (NEGATIVE) Blood Type Antibody Screen 10/22/21 10/22/21 10/22/21 Range/Units 06:13 06:13 07:32 WBC 16.00 H (4.8-10.8) K/uL RBC 3.99 L (4.7-6.1) M/uL Hgb 12.8 L (14.0-18.0) g/dL Hct 37.4 L (42-52) % MCV 93.7 (80-100) fL MCH 32.1 (25-34) pg MCHC 34.2 (32-36) g/dL RDW Std Deviation 42.9 (36.4-46.3) fL RDW Coeff of Rose Marie 12.5 (11.5-14.5) % Plt Count 293 (130-400) K/uL MPV 9.9 (7.4-10.4) fL Sodium 135 L (136-145) mmol/L Potassium 4.7 (3.5-5.1) mmol/L Chloride 100 (98-107) mmol/L Carbon Dioxide 26 (21-32) mmol/L Anion Gap 9 (3-11) BUN 18 (6-23) mg/dl Creatinine 0.78 (0.6-1.4) mg/dl Est Cr Clr Drug Dosing 139.9 ml/min Est GFR ( Amer) 110.6 ml/min Est GFR (Non-Af Amer) 95.4 ml/min BUN/Creatinine Ratio 23.1 H (10-20) Glucose 154 H (70-99(Fasting)) mg/dl POC Glucose 146 H (70-99) mg/dl Calcium 8.8 (8.5-10.1) mg/dl SARS-CoV-2, RNA, NAAT (NEGATIVE) Blood Type Antibody Screen 10/22/21 Range/Units 11:36 WBC (4.8-10.8) K/uL RBC (4.7-6.1) M/uL Hgb (14.0-18.0) g/dL Hct (42-52) % MCV (80-100) fL MCH (25-34) pg MCHC (32-36) g/dL RDW Std Deviation (36.4-46.3) fL RDW Coeff of Rose Marie (11.5-14.5) % Plt Count (130-400) K/uL MPV (7.4-10.4) fL Sodium (136-145) mmol/L Potassium (3.5-5.1) mmol/L Chloride (98-107) mmol/L Carbon Dioxide (21-32) mmol/L Anion Gap (3-11) BUN (6-23) mg/dl Creatinine (0.6-1.4) mg/dl Est Cr Clr Drug Dosing ml/min Est GFR ( Amer) ml/min Est GFR (Non-Af Amer) ml/min BUN/Creatinine Ratio (10-20) Glucose (70-99(Fasting)) mg/dl POC Glucose 150 H (70-99) mg/dl Calcium (8.5-10.1) mg/dl SARS-CoV-2, RNA, NAAT (NEGATIVE) Blood Type Antibody Screen Total Time Total Time Spent Total Time Spent (In Minutes): 20 Discharge Plan Discharge Items Patient Disposition: Home - Home Health Services Reason For Visit: Left Knee Osteoarthritis Discharge Diagnosis: Left Knee Osteoarthritis Activity: Per Instructions section Weightbearing: Left weightbearing Weightbearing Comment: as tolerated with walker Non-emergency contact: Surgeon Call non-emergency contact if: your pain is not controlled, your temperature is above 101.5, your wound has increased redness and your wound has increased drainage Follow-up/Referrals: Ron Hamilton MD [Primary Care Provider] - Diet: Carb Consistent or DM2 Addtl Attending Provider Instructions: ACTIVITY RECOMMENDATIONS: SELF CARE INSTRUCTIONS AFTER TOTAL KNEE REPLACEMENT A. You may need to continue a physical therapy program after discharge from the hospital. There are several options available to you. Your doctor will assist you in selecting the best one for you. 1. An out-patient facility 2 to 3 times a week for therapy or home therapy. 2. Continue working on all exercises taught to you in the hospital. Your goals should be to increase bending of your knee to 90 degrees and beyond and to fully straighten your knee. B. You may progress at your own pace from walking with a walker or crutches to a cane; then to no assistive devices. C. Make walking a part of your daily routine. Be up as much as comfortable with rest periods throughout the day. Rest with leg elevation is very important. Use the ice wrap frequently for the first 3-4 weeks. D. There are no restrictions on activities. You may ride in a car, shop, participate in [employer] and all social activities. E. Wear the long elastic stockings (SJ hose) 20 hours a day for 2 weeks after surgery. They can be removed several times a day for laundering and for a bath. F. You may shower, no tub baths until cleared by your doctor. SPECIAL CARE INSTRUCTIONS: VERY IMPORTANT TO READ AND REVIEW A. There are a few signs you need to watch for after you are home. Call [facility] if you notice any of the followin. Increased severe knee pain. Some pain is expected especially when you exercise. 2. Increased swelling in your leg or knee; pain or swelling of the calf mus ole in either lower leg. 3. Any fluid drainage from the incision. 4. Shortness of breath or chest pain. B. Please call [facility] at if you have any concerns or questions about your operation or recovery. The doctor or his nurse will return your call promptly. C. You must take antibiotics before dental work, bladder, bowel or other surgery. Your doctor will provide you with a permanent care to carry describing this precaution. IMPORTANT: * REMEMBER TO TAKE ASPIRIN, 81 MG, TWICE DAILY FOR 4 WEEKS UNLESS OTHERWISE DIRECTED. THIS IS YOUR BLOOD THINNER.. * CALL IF INCREASED PAIN, REDNESS, DRAINAGE OR FEVER GREATER THAT 101. * WEAR SJ HOSE 20 HOURS PER DAY FOR 2 WEEKS. * AMRIK Dressing - This is a large suction dressing covering your incision. This will help pull any excess drainage from the wound and allow your incision to heal properly. You may shower with this if you can keep the unit outside of the shower. If any bleeding or leakage is noted please call your doctor's offic e. This will remain on your incision for 7 days and then should be removed. This can be done yourself or by the home nursing staff if applicable. The entire unit is disposable once removed. Once removed, keep incision clean and dry. If redness or drainage is noted, please call your surgeon. . FOLLOW UP VISIT: If appointment is not already scheduled: Please call [facility] to make a follow-up appointment for 2 weeks after your surgery at . Stand-Alone Forms: [facility], Opioid Pain Management, Smoking Cessation Medications and DC Order Prescriptions: New aspirin 81 mg Tablet,Delayed Release (Dr/Ec) 81 mg PO BID 30 Days Qty: 60 RF: 0 acetaminophen [Tylenol Extra Strength] 500 mg Tablet 1,000 mg PO Q8H 14 Days Qty: 84 RF: 0 celecoxib [Celebrex] 200 mg Capsule 200 mg PO BID Qty: 60 RF: 0 oxycodone 5 mg Tablet 5 - 10 mg PO .Q4h-6h MDD 6 PRN (Reason: pain) Qty: 30 RF: 0 cefadroxil 500 mg capsule 500 mg PO BID Qty: 14 RF: 0 Continued lisinopril 20 mg tablet 20 mg PO DAILY Qty: 90 RF: 3 trazodone 100 mg tablet 100 mg PO HS Qty: 90 RF: 3 metoprolol succinate 50 mg tablet extended release 24 hr 50 mg PO DAILY Qty: 90 RF: 3 atorvastatin 80 mg tablet 80 mg PO HS Qty: 90 RF: 3 escitalopram oxalate 20 mg tablet 20 mg PO DAILY Qty: 90 RF: 3 cyanocobalamin (vitamin B-12) 1,000 mcg/mL kit 1,000 mcg IM MONTHLY Qty: 3 RF: 3 nitroglycerin 0.4 mg tablet, sublingual 0.4 mg SL Q5M PRN (Reason: chest pain) Qty: 25 RF: 2 ferrous gluconate 324 mg (38 mg iron) tablet 324 mg PO DAILY Qty: 30 RF: 0 (DME) BD SafetyGlide Syringe 3 mL 25 x 5/8" syringe See Dose Instructions .ROUTE .MEDSUPPLY Qty: 1 RF: 0 Glucos Chond Cplx Advanced 750 mg-100 mg- 125 mg-1.65 mg tablet 1 tab PO DAILY RF: 0 ascorbic acid (vitamin C) 500 mg tablet 500 mg PO QAM RF: 0 dexamethasone 0.5 mg/5 mL solution 5 ml PO BID Qty: 240 RF: 0 chlorhexidine gluconate [Peridex] 0.12 % mouthwash 15 ml buccal BID Qty: 1500 RF: 0 calcium 600 mg Capsule 600 mg PO HS RF: 0 Discontinued hydrocodone-acetaminophen 5-325 mg tablet See Rx Instructions PO QID MDD 6 PRN (Reason: pain) Qty: 180 RF: 0 meloxicam 15 mg tablet 15 mg PO DAILY Qty: 30 RF: 0 aspirin 81 mg tablet 81 mg PO HS RF: 0 No Action zolpidem 10 mg tablet 10 mg PO HS PRN (Reason: insomnia) Qty: 90 RF: 1 pantoprazole 40 mg tablet,delayed release (DR/EC) 40 mg PO DAILY Qty: 90 RF: 3 Discharge Orders: Discharge Order (Routine); Ordered 10/22/21 Ordered By: Mckay Champagne/Other Patient Handouts: DVT Post Op Prevention, Tips After Knee Surgery, Knee Replacement Total Dc Admission Data Admit Date/Time: 10/21/21 12:30 Attending Provider: Luis Hernandez Admit Provider: Luis Hernandez Primary Care Provider: Ron Hamilton Other Providers: Darwin Tarango,Home Health Other Interventions: Discharge Summary Assessment (RN) Last Done: 10/22/21 11:54
== END 2021-10-22 14:22 | disposition home health service (06) ==
LOC: ASU 06:20 → 3E 06:20